=== PATIENT | male | born 1950 | race Caucasian/White ===

== ENCOUNTER 2017-10-17 12:36 | Emergency (ER) | payer MEDICARE, OTHER ==
[2017-10-17 13:27] LABS: #Basophils 0.1 thou/uL (0.0-0.2); #Eosinphils 0.4 thou/uL (0.0-0.7); #Lymphocytes 1.6 thou/uL (1.20-3.40); #Monocytes 0.6 thou/uL (0.11-0.59); %Basophils 0.6 % (0.0-1.0); %Eosinophils 4.2 % (0.0-10.0); %Lymphocytes 16.6 % (21.0-51.0); %Monocytes 6.6 % (0.0-10.0); %Neutrophils 72.1 % (42.0-75.0); Hemoglobin 10.3 g/dL (14.0-18.0); Mean Corpuscular HGB CONC 34.5 g/dL (32.0-36.0); Mean Corpuscular Hemoglobin 31.8 pg (27.0-31.0); Mean Platelet Volume 6.7 fL (7.4-10.4); Platelet Count 289 thou/uL (130-400); RBC Distribution Width 12.2 % (11.5-14.5); Red Blood Cell (RBC) Count 3.23 mill/uL (4.70-6.10); White Blood Cell (WBC) Count 9.8 thou/uL (4.8-10.8)
[2017-10-17 13:39] LABS: Bilirubin Negative (Negative); Blood, Urine Moderate (Negative); Clarity CLOUDY (Clear); Glucose, Urine (Dipstick) Negative (Negative); Leukocyte Large (Negative); Nitrite Negative (Negative); Protein, Urine (Dipstick) Trace mg/dL (Neg-Trace); Specific Gravity, Urine 1.017 (1.002-1.036); Urobilinogen 0.2 mg/dL (0.2-1.0); pH, Urine 5.5 (5.0-9.0)
[2017-10-17 13:47] LABS: Bacteria/HPF None Seen HPF (None Seen); Hyaline Casts/LPF 0-3 HYALINE CAST LPF (0-3 Hyaline); Pathc Cast-AUWi Flag 0.43 (0-2.49); RBC/HPF 0-3 HPF (0-3); Yeast-AUWi Flag 3.4 (0-25.0)
[2017-10-17 13:54] LABS: ALT (SGPT) 30 U/L (8-55); AST (SGOT) 13 U/L (5-34); Albumin 3.7 g/dL (3.4-4.8); Alkaline Phosphatase 54 U/L (40-150); Anion Gap 18 mmol/L (10-20); BUN (Urea Nitrogen) 37 mg/dL (8.4-25.7); Bilirubin, Total 0.2 mg/dL (0.2-1.2); Calc. Creatinine Clearance 0 mL/min (70-130); Calcium 9.5 mg/dL (7.8-10.44); Carbon Dioxide 17 mmol/L (23-31); Chloride 112 mmol/L (98-107); Estimated GFR-MDRD 34; Globulin 3.6 g/dL (2.4-3.5); Glucose 119 mg/dL (80-115); Potassium 4.4 mmol/L (3.5-5.1); Protein, Total 7.3 g/dL (5.8-8.1); Sodium 143 mmol/L (136-145)
[2017-10-17 14:11] LABS: Renal Epithelial None Seen HPF (0-3); Transitional Epithelial NONE SEEN HPF (0-3)
== END 2017-10-17 16:54 | disposition home or self-care (01) ==
LOC: ERS 12:36
DX: R33.9 Retention of urine, unspecified (principal); K21.9 Gastro-esophageal reflux disease without esophagitis; R73.03 Prediabetes; I10 Essential (primary) hypertension; J45.909 Unspecified asthma, uncomplicated; Z79.899 Other long term (current) drug therapy
CPT/HCPCS: 51702; 80053; 81003; 81015; 85025; 96360; 96361

== ENCOUNTER 2017-10-30 11:36 | Outpatient (CLI) | payer MEDICARE ==
[2017-10-30 12:35] LABS: PTT 28.7 SEC (22.9-36.1); Prothrombin Time 13.4 SEC (12.0-14.7)
[2017-10-30 12:45] LABS: Hemoglobin 9.6 g/dL (14.0-18.0); Mean Corpuscular HGB CONC 33.9 g/dL (32.0-36.0); Mean Corpuscular Hemoglobin 31.8 pg (27.0-31.0); Mean Corpuscular Volume 93.8 fL (78.0-98.0); Mean Platelet Volume 7.3 fL (7.4-10.4); Platelet Count 190 thou/uL (130-400); RBC Distribution Width 13.5 % (11.5-14.5); Red Blood Cell (RBC) Count 3.02 mill/uL (4.70-6.10); White Blood Cell (WBC) Count 6.9 thou/uL (4.8-10.8)
[2017-10-30 12:49] LABS: Anion Gap 13 mmol/L (10-20); BUN (Urea Nitrogen) 23 mg/dL (8.4-25.7); Calc. Creatinine Clearance 0 mL/min (70-130); Calcium 8.5 mg/dL (7.8-10.44); Carbon Dioxide 23 mmol/L (23-31); Chloride 109 mmol/L (98-107); Estimated GFR-MDRD 45; Glucose 134 mg/dL (80-115); Potassium 4.1 mmol/L (3.5-5.1); Sodium 141 mmol/L (136-145)
== END 2017-10-30 11:37 | disposition home or self-care (01) ==
LOC: LABBT 11:36
PROVIDERS: ATTEND Urology
DX: Z01.818 Encounter for other preprocedural examination (principal); N40.1 Benign prostatic hyperplasia with lower urinary tract symptoms
CPT/HCPCS: 80048; 81001; 85027; 85610; 85730; 86850; 86900; 86901

== ENCOUNTER 2017-11-01 05:48 | Observation (INO) | payer MEDICARE ==
[2017-11-01] MEDS ORDERED: Sodium Chloride 0.9% 100 ML ONE (06:05)
[2017-11-01] MEDS ORDERED: cefTRIAXone\\ROCEPHIN 1 GM VIAL ONE (06:05)
[2017-11-01] MEDS ORDERED: Fentanyl 100 MCG/2 ML VIAL ONE ×3 (06:55→10:41)
[2017-11-01] MEDS ORDERED: Midazolam HCl 2 mg/2 ml Vial ONE (06:55)
[2017-11-01] MEDS ORDERED: B & O ONE (09:05)
[2017-11-01] MEDS ORDERED: Ondansetron HCl/PF 4 MG/2 ML Vial IVP PRN (10:21)
[2017-11-01] MEDS ORDERED: hydrALAZINE 20 MG/ML VIAL SLOW IVP PRN (10:21)
[2017-11-01] MEDS ORDERED: Oxybutynin 5 MG TAB PO PRN (10:21)
[2017-11-01] MEDS ORDERED: Hyoscyamine Sulfate SL 0.125 mg Tablet SL PRN (10:21)
[2017-11-01] MEDS ORDERED: diphenhydrAMINE 25 MG CAP PO PRN (10:21)
[2017-11-01] MEDS ORDERED: Acetaminophen 500 MG TAB PO PRN (10:21)
[2017-11-01] MEDS ORDERED: Mag-Al 1200 mg/1200 mg/30 ML UDCUP PO PRN (10:21)
[2017-11-01] MEDS ORDERED: Bisacodyl 10 MG SUPP PR PRN (10:21)
[2017-11-01] MEDS ORDERED: traMADol HCl 50 MG TAB PO PRN (10:24)
--- NOTE | 2017-11-01 11:36 | OP ---
DATE OF PROCEDURE: 11/01/2017 SERVICE: Urology. SURGEON: Titus Dunn M.D. PREOPERATIVE DIAGNOSIS: Benign prostatic hypertrophy with urinary retention. POSTOPERATIVE DIAGNOSIS: Benign prostatic hypertrophy with urinary retention. PROCEDURE PERFORMED: Transurethral resection of the prostate. INDICATIONS FOR PROCEDURE: Mr. Genao is a 67-year-old white male who presented to [facility] with a near co mplete urinary retention with bilateral hydronephrosis and acute kidney injury which had previously b een managed by an outside urologist with Khanna catheterization. He was planned for a TURP at that ti mt, but unfortunately due to a series of infections, he was never able to have his surgery. He trans ferred his care to [facility] and currently is free of infection. Due to his severe BPH, he elected to move forward with TURP, which we have discussed extensively with all risks and benefits of which he agreed to proceed forward. DESCRIPTION OF PROCEDURE: After identification of armband and verification of consent, patient was b rought back to the operating room under endotracheal intubation. He was then placed in dorsal lithot yessica position and prepped and draped in sterile fashion. After appropriate timeout, a lubricated 26 F rench resectoscope sheath was placed through the urethra into the bladder. A full cystoscopy was per formed which demonstrated a severe median lobe occupying a good portion of the bladder along with sev ere trilobar hypertrophy. The bladder was trabeculated but did not demonstrate any evidence of tumor or lesions. The visual obturator was switched out for the bipolar prostate resectoscope loop and un conrad bipolar cutting current, the median lobe was resected completely taking care not to undermine the bladder neck or the bladder itself. Both ureters were identified during this process and marked jus t medial and distal to the UO for later identification. Once the median lobe was fully resected, the prostate was resected circumferentially to near the level of the verumontanum. Due to the extremely large size of the prostate, the entire prostate could not be resected and there is still probably an ywhere from 25% to 50% of the prostate tissue still present within the patient. However, given the l ength of time in a very large prostate that the patient has a figure this may be better as a staged p rocedure. Therefore, we elected to stop the procedure after the prostate was completely wide open; h owever, as I stated before, there was still a fair amount of prostate tissue left, which has not yet been resected, although the patient does not necessarily need to have it resected at this time. He m ay be amenable to resection at a later date either in the near future or postponed until he has recur rent symptoms. As such, an extensive amount of time was spent drying up the prostate bed until all a reas of bleeding had been cauterized. The [employer] evacuator was used to evacuate all the prostate chip s, which were sent for routine pathologic evaluation. Upon final cystoscopy, there did not appear to be any prostate chips left within the bladder. Any small residual prostate chips removed manually w ith the resectoscope loop. Both ureters were in orthotopic location unharmed. The prostate was wide open and there was no bleeding. The resectoscope was then removed and a 22-Bahamian three-way Khanna c atheter was placed into the patient's bladder with ease with 30 mL of sterile water placed into the b alloon. CBI was initiated. The patient then had a StatLock affixed and B&O suppository placed in hi s rectum. He was then awakened and taken to PACU for recovery in stable condition. COMPLICATIONS: None. ESTIMATED BLOOD LOSS: Minimal around 50 mL. RETAINED TUBES AND DRAINS: A 22-Bahamian Khanna catheter on CBI. SPECIMENS: Prostate chips. DISPOSITION: The patient will be kept in the hospital overnight to monitor for his hematuria. We wi ll plan a voiding trial in the morning and then he probably can be discharged home.
[2017-11-01 12:05] VITALS: BMI 33.4
[2017-11-01] MEDS ORDERED: Glycopyrrolate 0.2 MG/ML 5 ML SYRINGE ONE (15:47)
[2017-11-01] MEDS ORDERED: PROPOFOL 200 MG/20 ML VIAL ONE (15:47)
[2017-11-01] MEDS ORDERED: Lidocaine 1% PF 5 ML VIAL ONE (15:47)
[2017-11-01] MEDS ORDERED: Ondansetron HCl/PF 4 MG/2 ML Vial ONE (15:47)
[2017-11-01] MEDS: Calcium Carbonate 500 MG ChewTAB PO PRN ×2 (18:55→23:56)
[2017-11-01] MEDS: Docusate 100 MG CAP PO SCH (22:12)
[2017-11-02] MEDS ORDERED: Metoclopramide HCl 10 MG/2 ML VIAL IVP PRN (02:23)
[2017-11-02] MEDS ORDERED: Pantoprazole 40 MG VIAL IVP SCH (02:30)
[2017-11-02 06:22] LABS: #Eosinphils 0.3 thou/uL (0.0-0.7); #Monocytes 0.5 thou/uL (0.11-0.59); #Neutrophils 6.5 thou/uL (1.40-6.50); %Basophils 0.4 % (0.0-1.0); %Eosinophils 3.3 % (0.0-10.0); %Monocytes 5.8 % (0.0-10.0); %Neutrophils 78.4 % (42.0-75.0); Hemoglobin 9.5 g/dL (14.0-18.0); Mean Corpuscular HGB CONC 33.5 g/dL (32.0-36.0); Mean Corpuscular Hemoglobin 31.4 pg (27.0-31.0); Mean Corpuscular Volume 93.6 fL (78.0-98.0); Mean Platelet Volume 7.1 fL (7.4-10.4); Platelet Count 211 thou/uL (130-400); RBC Distribution Width 13.4 % (11.5-14.5); Red Blood Cell (RBC) Count 3.02 mill/uL (4.70-6.10); White Blood Cell (WBC) Count 8.3 thou/uL (4.8-10.8)
[2017-11-02 06:26] LABS: Anion Gap 12 mmol/L (10-20); BUN (Urea Nitrogen) 21 mg/dL (8.4-25.7); Calc. Creatinine Clearance 68 mL/min (70-130); Calcium 8.5 mg/dL (7.8-10.44); Carbon Dioxide 28 mmol/L (23-31); Chloride 109 mmol/L (98-107); Estimated GFR-MDRD 44; Glucose 147 mg/dL (80-115); Potassium 3.8 mmol/L (3.5-5.1); Sodium 145 mmol/L (136-145)
[2017-11-02] MEDS: Docusate 100 MG CAP PO SCH (08:54)
[2017-11-02 12:45] VITALS: BP 150/89; TEMP 98.4
--- NOTE | 2017-11-02 18:03 | PRG ---
DATE OF SERVICE: 11/02/2017 SUBJECTIVE: The patient states he is doing alright. He is having a little bit of catheter irritatio n, but denies any significant pain or bladder spasms. His urine is very clear this morning and his C BI was turned off. He is not having any chest pain or shortness of breath. The patient did have vom iting overnight x2 with brown rust colored urine. The patient has a known history of reflux and stat es that he did not get his Prilosec in time. He was able to eat breakfast this morning without any p roblems and has not had any further issues with nausea, vomiting since. OBJECTIVE: VITAL SIGNS: Temperature 98.4, pulse 71, respirations 16, blood pressure 150/89, saturation 96% on r oom air. GENERAL: No apparent distress, communicative, alert. CARDIOVASCULAR: Regular rate and rhythm. ABDOMEN: Soft, nontender, and nondistended. GENITOURINARY: Khanna catheter in place, draining just light pink-tinged urine. CBI is off. Cathete r secured. EXTREMITIES: No clubbing, cyanosis or edema. LABORATORY DATA: The full set of labs in the [facility], which I reviewed. Of note, hemoglobin is 9.5. His creatinine is currently stable at 1.56, white count of 8.3 and hemoglobin of 9.5. ASSESSMENT AND PLAN: A 67-year-old white male with benign prostatic hypertrophy and urinary retentio n and bilateral hydronephrosis managed with a catheter, now status post transurethral resection of th e prostate postoperative day #1. We will perform a voiding trial and see how he does. He may or may not be able to void and he should be able to be discharged home regardless, but we will plan to send him home with a catheter if he is unable to void. I have gone over his discharge instructions as we ll as postoperative care and we will plan to see him back next week if he is unable to void and has t o go home with a catheter or 2-3 weeks if he is able to void.
--- NOTE | 2017-11-03 02:01 | DIS ---
DATE OF ADMISSION: 11/01/2017 DATE OF DISCHARGE: 11/02/2017 ADMITTING PHYSICIAN: Titus Dunn M.D. DISCHARGING PHYSICIAN: Titus Dunn M.D. ADMITTING DIAGNOSIS: Benign prostatic hyperplasia with urinary retention. DISCHARGE DIAGNOSIS: Benign prostatic hyperplasia with urinary retention. PROCEDURE PERFORMED ON PATIENT: Transurethral resection of the prostate. BRIEF HISTORY: Mr. Genao is a 67-year-old white male, who initially had presented with urinary rete ntion and bilateral hydronephrosis with acute kidney injury. He was managed initially by an outside urologist, who had placed a Khanna catheter and was planning a TURP and, unfortunately, the patient be came septic and had to have this surgery delayed. He is now much better and has been treated adequat daysi and is coming in now for a TURP with me. All risks and benefits have previously been discussed. HOSPITAL COURSE: After surgery (please see operative note for details), the patient was placed in ob servation in the hospital on continuous bladder irrigation, which he kept overnight. The CBI was sto pped in the morning and the patient's urine was very clear. He did have 2 episodes of emesis overnig ht with rust-colored urine, but this stopped after the morning and he was able to eat breakfast and d id not have any further problems. He states this happens whenever he does not take his reflux medica tions on time, which he did not get adequately, because of the surgery yesterday. The patient's cath eter was removed, but unfortunately the patient was not able to void. After approximately 5 hours, a bladder scan was done, which demonstrated approximately 500 mL of urine in the bladder. We elected to replace the Khanna catheter at this point and sent him home with a catheter. An 18-Estonian Khanna ca theter with a 30 mL balloon was placed with ease into the patient's bladder and the balloon is filled with sterile water. This was hooked up to a gravity bag and is secured with a StatLock. We went ov er his discharge instructions. He was discharged home with plans to return in a few days for a void trial. DISPOSITION: Discharge to home with Khanna catheter. DISCHARGE CONDITION: Good. DISCHARGE MEDICATIONS: To resume all of his home medications except the terazosin, which will be dis continued permanently. In addition, he has been getting oxybutynin 5 mg p.o. twice a day for bladder spasms and Pyridium 100 mg p.o. t.i.d. p.r.n. dysuria. DISCHARGE INSTRUCTIONS: Include no heavy lifting, strenuous activities, avoid driving with a cathete r or getting constipated. He is not to submerge under water, but may shower. He should follow up wi th me on Sunday for a void trial.
== END 2017-11-02 17:00 | disposition home or self-care (01) ==
LOC: SDC 05:48 → SJJU 11:40
PROVIDERS: ADMIT Urology; ATTEND Urology
PROC: 0VB08ZZ Excision of Prostate, Via Natural or Artificial Opening Endoscopic (ICD-10-PCS; principal; 2017-11-01)
DX: N40.1 Benign prostatic hyperplasia with lower urinary tract symptoms (principal); N13.8 Other obstructive and reflux uropathy; R33.8 Other retention of urine; N41.0 Acute prostatitis; N13.30 Unspecified hydronephrosis; J45.909 Unspecified asthma, uncomplicated; G47.30 Sleep apnea, unspecified; I12.9 Hypertensive chronic kidney disease with stage 1 through stage 4 chronic kidney disease, or unspecified chronic kidney disease; N18.9 Chronic kidney disease, unspecified; F17.220 Nicotine dependence, chewing tobacco, uncomplicated; Z96.0 Presence of urogenital implants; Z79.899 Other long term (current) drug therapy
CPT/HCPCS: 52601; 80048; 85025; 88305; 94660; 96374 ×2; 96375; G0378; 36415; C9113; J0696; J1956; J2001; J2250; J2405; J2704; J2765; J3010; J7050

== ENCOUNTER 2021-01-10 22:55 | Inpatient (IN) | payer MEDICARE, OTHER ==
[2021-01-11] MEDS ORDERED: Acetaminophen 325 MG TAB PO PRN (02:53)
[2021-01-11] MEDS ORDERED: Ondansetron PF 4 MG/2 ML Vial IVP PRN (02:53)
[2021-01-11] MEDS ORDERED: Acetaminophen 650 MG Suppository PR PRN (02:53)
[2021-01-11] MEDS ORDERED: Ondansetron ODT 4 MG TAB PO PRN (02:53)
[2021-01-11 03:25] LABS: #Basophils 0.1 thou/uL (0.0-0.2); #Eosinphils 0.3 thou/uL (0.0-0.7); #Lymphocytes 1.4 thou/uL (1.20-3.40); #Monocytes 0.7 thou/uL (0.11-0.59); #Neutrophils 4.7 thou/uL (1.40-6.50); %Eosinophils 3.7 % (0.0-10.0); %Lymphocytes 19.8 % (21.0-51.0); %Monocytes 9.5 % (0.0-10.0); %Neutrophils 66.1 % (42.0-75.0); Hemoglobin 11.3 g/dL (14.0-18.0); Mean Corpuscular HGB CONC 34.6 g/dL (32.0-36.0); Mean Corpuscular Hemoglobin 33.9 pg (27.0-31.0); Mean Corpuscular Volume 98.2 fL (78.0-98.0); Mean Platelet Volume 8.5 fL (7.4-10.4); Platelet Count 158 thou/uL (130-400); RBC Distribution Width 11.9 % (11.5-14.5); Red Blood Cell (RBC) Count 3.33 mill/uL (4.70-6.10); White Blood Cell (WBC) Count 7.1 thou/uL (4.8-10.8)
[2021-01-11 03:44] LABS: Anion Gap 14 mmol/L (10-20); BUN (Urea Nitrogen) 50 mg/dL (8.4-25.7); Calc. Creatinine Clearance 52 mL/min (70-130); Calcium 8.5 mg/dL (7.8-10.44); Carbon Dioxide 19 mmol/L (23-31); Chloride 102 mmol/L (98-107); Glucose 197 mg/dL (83-110); Potassium 3.5 mmol/L (3.5-5.1); Sodium 131 mmol/L (136-145)
[2021-01-11] MEDS ORDERED: Dextrose 5% in Water 1,000 ML IV PRN (05:24)
[2021-01-11] MEDS ORDERED: HumaLOG 300 UNITS/3 ML VIAL SC PRN (05:24)
[2021-01-11] MEDS ORDERED: Dextrose 50% Abboject 50 ML SYRINGE SLOW IVP PRN (05:24)
[2021-01-11] MEDS: Sodium Chloride 0.9% 1,000 ML IV SCH ×2 (06:01→17:51)
[2021-01-11] MEDS ORDERED: HumaLOG 300 UNITS/3 ML VIAL ONE (07:49)
[2021-01-11] MEDS: HumaLOG 300 UNITS/3 ML VIAL SC PRN ×2 (07:50→13:17)
[2021-01-11 08:40] LABS: Hemoglobin 10.6 g/dL (14.0-18.0)
[2021-01-11] MEDS ORDERED: Pantoprazole 40 MG VIAL ONE (08:50)
[2021-01-11] MEDS: Pantoprazole 40 MG VIAL IVP SCH ×2 (10:01→21:05)
[2021-01-11] MEDS ORDERED: GoLYTELY 4,000 ml Bottle PO SCH (17:00)
[2021-01-12] MEDS: Sodium Chloride 0.9% 1,000 ML IV SCH (02:45)
[2021-01-12 04:59] LABS: #Eosinphils 0.3 thou/uL (0.0-0.7); #Lymphocytes 1.4 thou/uL (1.20-3.40); #Monocytes 0.6 thou/uL (0.11-0.59); #Neutrophils 3.9 thou/uL (1.40-6.50); %Basophils 0.6 % (0.0-1.0); %Eosinophils 4.3 % (0.0-10.0); %Monocytes 9.3 % (0.0-10.0); %Neutrophils 62.8 % (42.0-75.0); Hemoglobin 10.8 g/dL (14.0-18.0); Mean Corpuscular Hemoglobin 34.4 pg (27.0-31.0); Mean Corpuscular Volume 98.2 fL (78.0-98.0); Mean Platelet Volume 8.6 fL (7.4-10.4); Platelet Count 173 thou/uL (130-400); RBC Distribution Width 11.9 % (11.5-14.5); Red Blood Cell (RBC) Count 3.15 mill/uL (4.70-6.10); White Blood Cell (WBC) Count 6.2 thou/uL (4.8-10.8)
[2021-01-12 05:27] LABS: Anion Gap 13 mmol/L (10-20); BUN (Urea Nitrogen) 30 mg/dL (8.4-25.7); Calc. Creatinine Clearance 69 mL/min (70-130); Calcium 8.5 mg/dL (7.8-10.44); Carbon Dioxide 21 mmol/L (23-31); Chloride 107 mmol/L (98-107); Glucose 188 mg/dL (83-110); Potassium 3.7 mmol/L (3.5-5.1); Sodium 137 mmol/L (136-145)
[2021-01-12] MEDS ORDERED: PROPOFOL 200 MG/20 ML VIAL ONE (11:06)
[2021-01-12] MEDS ORDERED: Lidocaine 1% PF 5 ML VIAL ONE (11:06)
[2021-01-12] MEDS: Pantoprazole 40 MG VIAL IVP SCH ×2 (15:09→20:25)
[2021-01-12] MEDS ORDERED: cefOXitin Sodium/Dextrose,Iso 2 GM in Premix Bag 1 BAG IVPB SCH (18:00)
[2021-01-12] MEDS: HumaLOG 300 UNITS/3 ML VIAL SC PRN (18:05)
[2021-01-13] MEDS ORDERED: cefOXitin Sodium/Dextrose 2 GM/50 ML BAG ONE (06:31)
[2021-01-13] MEDS ORDERED: Bupivacaine 0.25% HCL 30 ML VIAL ONE (06:36)
[2021-01-13] MEDS ORDERED: EPINEPHrine 1 MG/ML AMP ONE (06:36)
[2021-01-13] MEDS ORDERED: Fentanyl 100 MCG/2 ML VIAL ONE ×6 (06:59→15:54)
[2021-01-13] MEDS ORDERED: Midazolam HCl 2 mg/2 ml Vial ONE (06:59)
[2021-01-13] MEDS ORDERED: Lidocaine 1% (PF) 30 ML VIAL ONE (06:59)
[2021-01-13] MEDS ORDERED: Bupivacaine HCl 0.5%/Epinephrine 1:200,000/PF 30 ml Vial ONE (07:04)
[2021-01-13] MEDS ORDERED: Ondansetron PF 4 MG/2 ML Vial ONE (07:04)
[2021-01-13] MEDS ORDERED: Glycopyrrolate 0.2 MG/ML 5 ML SYRINGE ONE (07:04)
[2021-01-13] MEDS ORDERED: Lidocaine 1% PF 5 ML VIAL ONE (07:04)
[2021-01-13] MEDS ORDERED: PROPOFOL 200 MG/20 ML VIAL ONE (07:04)
[2021-01-13] MEDS ORDERED: Phenylephrine 10 MG/ML VIAL ONE (07:29)
[2021-01-13] MEDS ORDERED: Dexmedetomidine 200 MCG/2 ML VIAL ONE (07:29)
[2021-01-13] MEDS ORDERED: Ondansetron PF 4 MG/2 ML Vial IVP PRN (09:52)
[2021-01-13] MEDS ORDERED: Morphine 2 MG/ML VIAL SLOW IVP PRN (09:52)
[2021-01-13] MEDS ORDERED: Promethazine HCl 25 MG/ML VIAL IM PRN ×2 (09:52→10:01)
[2021-01-13] MEDS ORDERED: Ondansetron HCl/PF 4 MG/2 ML Vial IVP PRN (10:01)
[2021-01-13] MEDS ORDERED: HYDROmorphone 2 MG/ML VIAL SLOW IVP PRN (10:01)
[2021-01-13] MEDS ORDERED: Promethazine HCl 25 MG/ML VIAL IVPB PRN (10:01)
[2021-01-13] MEDS ORDERED: PACU-Morphine 4MG/ML VIAL SLOW IVP PRN (10:01)
[2021-01-13] MEDS ORDERED: Insulin Regular 300 UNITS/3 ML VIAL ONE (10:10)
[2021-01-13] MEDS ORDERED: HYDROmorphone 2 MG/ML VIAL ONE (10:55)
[2021-01-13] MEDS ORDERED: cefOXitin 2 GM in Sodium Chloride 0.9% 100 ML IVPB SCH (14:00)
[2021-01-13] MEDS: Pantoprazole 40 MG VIAL IVP SCH ×2 (17:18→21:19)
[2021-01-13] MEDS: cefOXitin Sodium/Dextrose,Iso 2 GM in Premix Bag 1 BAG IVPB SCH ×3 (17:18→21:18)
[2021-01-13] MEDS: Ketorolac Tromethamine 30 MG/ML VIAL IVP SCH ×2 (17:18→18:05)
[2021-01-13] MEDS: Sodium Chloride 0.9% 1,000 ML IV SCH ×4 (17:18→18:53)
[2021-01-13] MEDS ORDERED: cefOXitin Sodium/Dextrose,Iso 2 GM in Premix Bag 1 BAG IVPB SCH (17:30)
[2021-01-13] MEDS: Famotidine/PF 20 mg/2ml Vial SLOW IVP SCH (21:19)
[2021-01-13] MEDS: Famotidine 20 MG TAB PO SCH (21:19)
[2021-01-14] MEDS: Ketorolac Tromethamine 30 MG/ML VIAL IVP SCH ×5 (00:22→23:42)
[2021-01-14] MEDS: Sodium Chloride 0.9% 1,000 ML IV SCH ×3 (03:01→21:22)
[2021-01-14] MEDS: cefOXitin Sodium/Dextrose,Iso 2 GM in Premix Bag 1 BAG IVPB SCH (04:47)
[2021-01-14 06:57] LABS: #Eosinphils 0.1 thou/uL (0.0-0.7); #Lymphocytes 1.1 thou/uL (1.20-3.40); #Monocytes 0.7 thou/uL (0.11-0.59); #Neutrophils 5.7 thou/uL (1.40-6.50); %Basophils 0.2 % (0.0-1.0); %Eosinophils 0.8 % (0.0-10.0); %Monocytes 8.9 % (0.0-10.0); %Neutrophils 76.1 % (42.0-75.0); Hemoglobin 9.9 g/dL (14.0-18.0); Mean Corpuscular HGB CONC 32.3 g/dL (32.0-36.0); Mean Corpuscular Hemoglobin 32.9 pg (27.0-31.0); Mean Platelet Volume 7.7 fL (7.4-10.4); Platelet Count 145 thou/uL (130-400); RBC Distribution Width 11.9 % (11.5-14.5); Red Blood Cell (RBC) Count 3.02 mill/uL (4.70-6.10); White Blood Cell (WBC) Count 7.5 thou/uL (4.8-10.8)
[2021-01-14 07:23] LABS: Anion Gap 13 mmol/L (10-20); BUN (Urea Nitrogen) 15 mg/dL (8.4-25.7); Calc. Creatinine Clearance 66 mL/min (70-130); Calcium 7.7 mg/dL (7.8-10.44); Carbon Dioxide 17 mmol/L (23-31); Chloride 111 mmol/L (98-107); Glucose 160 mg/dL (83-110); Potassium 3.9 mmol/L (3.5-5.1); Sodium 137 mmol/L (136-145)
[2021-01-14] MEDS: Enoxaparin Sodium 40 MG/0.4 ML SYRINGE SC SCH (10:25)
[2021-01-14] MEDS: Pantoprazole 40 MG VIAL IVP SCH ×2 (10:26→21:23)
[2021-01-14] MEDS: Famotidine 20 MG TAB PO SCH ×2 (10:26→21:22)
[2021-01-14] MEDS: Famotidine/PF 20 mg/2ml Vial SLOW IVP SCH ×2 (12:41→21:21)
[2021-01-14] MEDS: hydrALAZINE 20 MG/ML VIAL SLOW IVP PRN (21:35)
[2021-01-14] MEDS: Morphine 4 MG/ML VIAL SLOW IVP PRN (23:46)
[2021-01-15] MEDS: Morphine 4 MG/ML VIAL SLOW IVP PRN ×5 (01:59→23:31)
[2021-01-15] MEDS: Sodium Chloride 0.9% 1,000 ML IV SCH ×3 (05:01→21:50)
[2021-01-15] MEDS: hydrALAZINE 20 MG/ML VIAL SLOW IVP PRN (05:01)
[2021-01-15] MEDS: Ketorolac Tromethamine 30 MG/ML VIAL IVP SCH ×4 (05:03→23:29)
[2021-01-15 05:21] LABS: #Eosinphils 0.1 thou/uL (0.0-0.7); #Lymphocytes 0.6 thou/uL (1.20-3.40); #Monocytes 0.6 thou/uL (0.11-0.59); #Neutrophils 8.5 thou/uL (1.40-6.50); %Basophils 0.2 % (0.0-1.0); %Eosinophils 0.6 % (0.0-10.0); %Monocytes 6.4 % (0.0-10.0); %Neutrophils 86.8 % (42.0-75.0); Hemoglobin 10.7 g/dL (14.0-18.0); Mean Corpuscular HGB CONC 32.9 g/dL (32.0-36.0); Mean Corpuscular Hemoglobin 33.1 pg (27.0-31.0); Platelet Count 161 thou/uL (130-400); RBC Distribution Width 11.9 % (11.5-14.5); Red Blood Cell (RBC) Count 3.22 mill/uL (4.70-6.10); White Blood Cell (WBC) Count 9.8 thou/uL (4.8-10.8)
[2021-01-15 05:37] LABS: Anion Gap 15 mmol/L (10-20); BUN (Urea Nitrogen) 17 mg/dL (8.4-25.7); Calc. Creatinine Clearance 81 mL/min (70-130); Calcium 7.7 mg/dL (7.8-10.44); Carbon Dioxide 16 mmol/L (23-31); Chloride 114 mmol/L (98-107); Glucose 138 mg/dL (83-110); Potassium 4.1 mmol/L (3.5-5.1); Sodium 141 mmol/L (136-145)
[2021-01-15] MEDS: Famotidine/PF 20 mg/2ml Vial SLOW IVP SCH ×2 (07:52→21:45)
[2021-01-15] MEDS: Pantoprazole 40 MG VIAL IVP SCH ×2 (08:45→21:45)
[2021-01-15] MEDS: Tamsulosin HCl 0.4 MG CAP PO SCH (08:46)
[2021-01-15] MEDS: Famotidine 20 MG TAB PO SCH ×2 (08:46→22:18)
[2021-01-15] MEDS: Enoxaparin Sodium 40 MG/0.4 ML SYRINGE SC SCH (09:00)
[2021-01-16] MEDS: Morphine 4 MG/ML VIAL SLOW IVP PRN (01:23)
[2021-01-16] MEDS ORDERED: cefOXitin Sodium/Dextrose,Iso 2 GM in Premix Bag 1 BAG IVPB SCH (03:00)
[2021-01-16] MEDS ORDERED: Albumin 5% 250 ML ONE (03:17)
[2021-01-16] MEDS ORDERED: Fentanyl 250 MCG/5 ML VIAL ONE (03:17)
[2021-01-16] MEDS ORDERED: Phenylephrine 10 MG/ML VIAL ONE ×3 (03:17→06:34)
[2021-01-16] MEDS ORDERED: Midazolam HCl 2 mg/2 ml Vial ONE (03:19)
[2021-01-16] MEDS ORDERED: Sodium Chloride 0.9% 10 ML ONE (04:06)
[2021-01-16] MEDS ORDERED: PROPOFOL 200 MG/20 ML VIAL ONE (04:14)
[2021-01-16] MEDS ORDERED: Rocuronium Bromide 10 MG/ML (10ML VIAL) ONE (04:14)
[2021-01-16] MEDS ORDERED: Succinylcholine 200 MG/10 ml SYRINGE FS ONE (04:14)
[2021-01-16] MEDS ORDERED: Calcium Chloride 1 GM/10 ML Abboject SYRINGE ONE (04:14)
[2021-01-16] MEDS ORDERED: PHENYLEPHRINE-NS 100 MCG/ML 10 ML SYRINGE ONE ×2 (04:14→05:43)
[2021-01-16] MEDS ORDERED: Lidocaine 1% PF 5 ML VIAL ONE (04:14)
[2021-01-16] MEDS ORDERED: Sodium Bicarb 50 MEQ/50 ML Abboject 8.4% SYRINGE ONE ×2 (04:42→06:41)
[2021-01-16] MEDS: Ketorolac Tromethamine 30 MG/ML VIAL IVP SCH ×2 (06:04→11:45)
[2021-01-16] MEDS: Sodium Chloride 0.9% 1,000 ML IV SCH ×4 (06:04→21:47)
[2021-01-16] MEDS ORDERED: cefOXitin Sodium/Dextrose 2 GM/50 ML BAG ONE (06:14)
[2021-01-16] MEDS ORDERED: DOPamine 400 MG/D5W 250 ML 250 ML ONE (06:36)
[2021-01-16] MEDS ORDERED: Bupivacaine 0.25% HCL 30 ML VIAL ONE (06:42)
[2021-01-16] MEDS ORDERED: EPINEPHrine 1 MG/ML AMP ONE (06:42)
[2021-01-16] MEDS ORDERED: Lorazepam 2 MG/ML VIAL SLOW IVP PRN (08:00)
[2021-01-16] MEDS ORDERED: Propofol 1,000 MG/100 ML VIAL IV PRN (08:00)
[2021-01-16] MEDS ORDERED: Propofol BOLUS 1,000 MG/100 ML VIAL IV PRN (08:00)
[2021-01-16] MEDS ORDERED: Fentanyl BOLUS 250 ML IVPB PRN (08:00)
[2021-01-16 08:34] LABS: Anion Gap 13 mmol/L (10-20); BUN (Urea Nitrogen) 23 mg/dL (8.4-25.7); Calc. Creatinine Clearance 64 mL/min (70-130); Calcium 7.2 mg/dL (7.8-10.44); Carbon Dioxide 18 mmol/L (23-31); Chloride 115 mmol/L (98-107); Glucose 186 mg/dL (83-110); Potassium 3.7 mmol/L (3.5-5.1); Sodium 142 mmol/L (136-145)
[2021-01-16 08:38] LABS: ALT (SGPT) 29 U/L (8-55); AST (SGOT) 41 U/L (5-34); Albumin 2.2 g/dL (3.4-4.8); Alkaline Phosphatase 56 U/L (40-110); Anion Gap 16 mmol/L (10-20); BUN (Urea Nitrogen) 24 mg/dL (8.4-25.7); Band 39 % (5-11); Calc. Creatinine Clearance 62 mL/min (70-130); Calcium 7.2 mg/dL (7.8-10.44); Carbon Dioxide 17 mmol/L (23-31); Chloride 115 mmol/L (98-107); Glucose 191 mg/dL (83-110); Lymphocytes 20 % (21-51); MDiff Complete? YES; Magnesium 1.3 mg/dL (1.6-2.6); Mean Corpuscular HGB CONC 33.4 g/dL (32.0-36.0); Mean Corpuscular Hemoglobin 34.7 pg (27.0-31.0); Mean Platelet Volume 7.8 fL (7.4-10.4); Metamyelocyte 2 % (0-0); Monocytes 2 % (0-10); Neutrophil 33 % (42-75); Phosphorus 2.6 mg/dL (2.3-4.7); Platelet Count 251 thou/uL (130-400); Potassium 3.7 mmol/L (3.5-5.1); Protein, Total 4.2 g/dL (5.8-8.1); RBC Distribution Width 12.2 % (11.5-14.5); Reactive Lymphocytes 4 % (0-10); Red Blood Cell (RBC) Count 2.89 mill/uL (4.70-6.10); Sodium 144 mmol/L (136-145); Toxic Granulation SLIGHT; Vacuoles SLIGHT; White Blood Cell (WBC) Count 5.5 thou/uL (4.8-10.8)
[2021-01-16] MEDS: Fentanyl CADD 100 ML IV SCH (09:31)
[2021-01-16 09:50] LABS: Base Excess (BEa) -9.4 mEq/L (-2.0 to +3.0); CO2 Tension 38.8 mmHg (35.0-45.0); Calcium, Ionized (arterial) 1.03 mmol/L (1.12-1.30); Carboxyhemoglobin (COHb) 0.2 gm% (0.0-3.0); Hemoglobin (Hb) 10.8 g/dL (14.0-18.0); O2 Tension (PaO2), arterial 95.7 mmHg (> 70.0); Potassium - ABG Lab 3.63 mmol/L (3.70-5.30); pH, Arterial 7.26 (7.35-7.45)
[2021-01-16 09:51] LABS: Puncture Site Arterial Line
[2021-01-16] MEDS ORDERED: Iopamidol-370 76% 500 ML 1 ML ONE (11:35)
[2021-01-16 11:46] LABS: Band 52 % (5-11); Hemoglobin 10.3 g/dL (14.0-18.0); Lymphocytes 10 % (21-51); MDiff Complete? YES; Mean Corpuscular HGB CONC 32.4 g/dL (32.0-36.0); Mean Corpuscular Hemoglobin 33.8 pg (27.0-31.0); Metamyelocyte 4 % (0-0); Monocytes 3 % (0-10); Neutrophil 29 % (42-75); Platelet Count 224 thou/uL (130-400); RBC Distribution Width 12.4 % (11.5-14.5); Reactive Lymphocytes 2 % (0-10); Red Blood Cell (RBC) Count 3.05 mill/uL (4.70-6.10)
[2021-01-16] MEDS: Tamsulosin HCl 0.4 MG CAP PO SCH (11:47)
[2021-01-16] MEDS: Famotidine 20 MG TAB PO SCH ×3 (11:48→21:45)
[2021-01-16] MEDS: cefOXitin Sodium/Dextrose,Iso 2 GM in Premix Bag 1 BAG IVPB SCH ×2 (11:54→20:47)
[2021-01-16] MEDS: Pantoprazole 40 MG VIAL IVP SCH (12:00)
[2021-01-16] MEDS: Enoxaparin Sodium 40 MG/0.4 ML SYRINGE SC SCH (12:00)
[2021-01-16] MEDS: Famotidine/PF 20 mg/2ml Vial SLOW IVP SCH ×2 (12:01→20:46)
[2021-01-16] MEDS: HumaLOG 300 UNITS/3 ML VIAL SC PRN ×2 (13:29→18:03)
[2021-01-16] MEDS: DOPamine 400 MG/D5W 250 ML 250 ML IVPB SCH ×2 (13:34→21:10)
[2021-01-16] MEDS ORDERED: Magnesium Sulfate 3 GM in Sodium Chloride 0.9% 100 ML IVPB SCH (19:30)
[2021-01-17] MEDS: cefOXitin Sodium/Dextrose,Iso 2 GM in Premix Bag 1 BAG IVPB SCH (02:34)
[2021-01-17 03:10] LABS: Hemoglobin 9.9 g/dL (14.0-18.0); Mean Corpuscular Hemoglobin 33.4 pg (27.0-31.0); Mean Platelet Volume 7.9 fL (7.4-10.4); Platelet Count 233 thou/uL (130-400); RBC Distribution Width 12.6 % (11.5-14.5); Red Blood Cell (RBC) Count 2.98 mill/uL (4.70-6.10); White Blood Cell (WBC) Count 13.1 thou/uL (4.8-10.8)
[2021-01-17 03:36] LABS: Anion Gap 13 mmol/L (10-20); BUN (Urea Nitrogen) 34 mg/dL (8.4-25.7); Calc. Creatinine Clearance 56 mL/min (70-130); Carbon Dioxide 18 mmol/L (23-31); Chloride 116 mmol/L (98-107); Glucose 232 mg/dL (83-110); Magnesium 2.9 mg/dL (1.6-2.6); Potassium 4.1 mmol/L (3.5-5.1); Sodium 143 mmol/L (136-145)
[2021-01-17 03:38] LABS: Band 67 % (5-11); Lymphocytes 10 % (21-51); MDiff Complete? YES; Metamyelocyte 1 % (0-0); Monocytes 3 % (0-10); Neutrophil 19 % (42-75); Toxic Granulation SLIGHT; Vacuoles SLIGHT
[2021-01-17 03:40] LABS: Lactic Acid 1.4 mmol/L (0.5-2.2)
[2021-01-17] MEDS ORDERED: Fentanyl CADD 100 ML ONE (03:50)
[2021-01-17 03:51] LABS: Phosphorus 3.2 mg/dL (2.3-4.7)
[2021-01-17] MEDS: Fentanyl CADD 100 ML IV SCH (03:58)
[2021-01-17] MEDS: Sodium Chloride 0.9% 1,000 ML IV SCH ×3 (04:50→19:42)
[2021-01-17 06:25] VITALS: BMI 37.5
[2021-01-17] MEDS: DOPamine 400 MG/D5W 250 ML 250 ML IVPB SCH (08:13)
[2021-01-17] MEDS ORDERED: Piperacillin/Tazobactam 3.375 GM in Sodium Chloride 0.9% 100 ML IVPB SCH ×2 (09:30→10:00)
[2021-01-17] MEDS ORDERED: Enoxaparin Sodium 40 MG/0.4 ML SYRINGE SC SCH (09:45)
[2021-01-17] MEDS: Pantoprazole 40 MG VIAL IVP SCH (09:54)
[2021-01-17] MEDS: Tamsulosin HCl 0.4 MG CAP PO SCH (09:54)
[2021-01-17] MEDS: Enoxaparin Sodium 40 MG/0.4 ML SYRINGE SC SCH ×2 (10:06→10:58)
[2021-01-17] MEDS: HumaLOG 300 UNITS/3 ML VIAL SC PRN (14:29)
[2021-01-17] MEDS: Piperacillin/Tazobactam 3.375 GM in Sodium Chloride 0.9% 100 ML IVPB SCH (19:46)
[2021-01-18] MEDS: Sodium Chloride 0.9% 1,000 ML IV SCH ×2 (01:06→08:42)
[2021-01-18] MEDS: Morphine 2 MG/ML VIAL SLOW IVP PRN ×3 (01:13→21:10)
[2021-01-18] MEDS ORDERED: Lorazepam 2 MG/ML VIAL SLOW IVP SCH (02:00)
[2021-01-18] MEDS: Piperacillin/Tazobactam 3.375 GM in Sodium Chloride 0.9% 100 ML IVPB SCH ×3 (03:30→17:52)
[2021-01-18 04:07] LABS: Hemoglobin 9.5 g/dL (14.0-18.0); Mean Corpuscular HGB CONC 31.6 g/dL (32.0-36.0); Mean Corpuscular Hemoglobin 32.8 pg (27.0-31.0); Mean Platelet Volume 8.2 fL (7.4-10.4); Platelet Count 194 thou/uL (130-400); RBC Distribution Width 12.8 % (11.5-14.5); Red Blood Cell (RBC) Count 2.89 mill/uL (4.70-6.10); White Blood Cell (WBC) Count 9.6 thou/uL (4.8-10.8)
[2021-01-18 04:29] LABS: ALT (SGPT) 20 U/L (8-55); AST (SGOT) 19 U/L (5-34); Albumin 2.1 g/dL (3.4-4.8); Alkaline Phosphatase 62 U/L (40-110); Anion Gap 16 mmol/L (10-20); BUN (Urea Nitrogen) 38 mg/dL (8.4-25.7); Bilirubin, Total 0.5 mg/dL (0.2-1.2); Calc. Creatinine Clearance 59 mL/min (70-130); Calcium 7.3 mg/dL (7.8-10.44); Carbon Dioxide 17 mmol/L (23-31); Chloride 118 mmol/L (98-107); Globulin 2.1 g/dL (2.4-3.5); Glucose 210 mg/dL (83-110); Magnesium 1.9 mg/dL (1.6-2.6); Potassium 3.9 mmol/L (3.5-5.1); Protein, Total 4.2 g/dL (5.8-8.1); Sodium 147 mmol/L (136-145)
[2021-01-18 04:33] LABS: Band 28 % (5-11); Lymphocytes 17 % (21-51); MDiff Complete? YES; Monocytes 2 % (0-10); Neutrophil 53 % (42-75); Platelet Morphology Comment Appears Adequate; RBC Morphology Normal
[2021-01-18 05:11] LABS: Phosphorus 2.7 mg/dL (2.3-4.7)
[2021-01-18] MEDS: Tamsulosin HCl 0.4 MG CAP PO SCH (08:41)
[2021-01-18] MEDS: Enoxaparin Sodium 40 MG/0.4 ML SYRINGE SC SCH (08:41)
[2021-01-18] MEDS: Pantoprazole 40 MG VIAL IVP SCH (08:42)
[2021-01-18] MEDS ORDERED: Sodium Bicarbonate 50 MEQ in Sodium Chloride 0.45% 1,000 ML IV SCH (08:45)
[2021-01-18] MEDS: HumaLOG 300 UNITS/3 ML VIAL SC PRN (18:47)
[2021-01-19] MEDS ORDERED: Lorazepam 2 MG/ML VIAL SLOW IVP PRN (00:01)
[2021-01-19] MEDS ORDERED: Sodium Chloride 0.9% 1,000 ML IV SCH (01:15)
[2021-01-19] MEDS: Piperacillin/Tazobactam 3.375 GM in Sodium Chloride 0.9% 100 ML IVPB SCH ×3 (01:36→17:48)
[2021-01-19] MEDS: hydrALAZINE 20 MG/ML VIAL SLOW IVP PRN ×2 (05:43→15:16)
[2021-01-19] MEDS: Morphine 2 MG/ML VIAL SLOW IVP PRN ×2 (05:44→15:16)
[2021-01-19 06:12] LABS: Hemoglobin 10.4 g/dL (14.0-18.0); Mean Corpuscular HGB CONC 31.3 g/dL (32.0-36.0); Mean Corpuscular Hemoglobin 32.2 pg (27.0-31.0); Mean Platelet Volume 8.1 fL (7.4-10.4); Platelet Count 217 thou/uL (130-400); RBC Distribution Width 13.2 % (11.5-14.5); Red Blood Cell (RBC) Count 3.24 mill/uL (4.70-6.10); White Blood Cell (WBC) Count 11.1 thou/uL (4.8-10.8)
[2021-01-19] MEDS: HumaLOG 300 UNITS/3 ML VIAL SC PRN ×2 (06:16→17:48)
[2021-01-19 06:22] LABS: Anion Gap 17 mmol/L (10-20); BUN (Urea Nitrogen) 42 mg/dL (8.4-25.7); Calc. Creatinine Clearance 66 mL/min (70-130); Calcium 7.9 mg/dL (7.8-10.44); Carbon Dioxide 18 mmol/L (23-31); Chloride 119 mmol/L (98-107); Glucose 214 mg/dL (83-110); Potassium 3.7 mmol/L (3.5-5.1); Sodium 150 mmol/L (136-145)
[2021-01-19 06:44] LABS: Band 24 % (5-11); Lymphocytes 10 % (21-51); MDiff Complete? YES; Monocytes 5 % (0-10); Myelocyte 1 % (0-0); Neutrophil 59 % (42-75); Reactive Lymphocytes 1 % (0-10)
[2021-01-19] MEDS ORDERED: Sodium Chloride 0.45% 1,000 ML IV SCH ×2 (08:45→13:09)
[2021-01-19] MEDS: Tamsulosin HCl 0.4 MG CAP PO SCH (09:06)
[2021-01-19] MEDS: Enoxaparin Sodium 40 MG/0.4 ML SYRINGE SC SCH (09:06)
[2021-01-19] MEDS: Pantoprazole 40 MG VIAL IVP SCH (09:07)
[2021-01-19] MEDS ORDERED: Furosemide 40 MG/4 ML VIAL SLOW IVP SCH (16:15)
[2021-01-20] MEDS: Piperacillin/Tazobactam 3.375 GM in Sodium Chloride 0.9% 100 ML IVPB SCH ×2 (01:56→08:18)
[2021-01-20 04:46] LABS: Hemoglobin 10.9 g/dL (14.0-18.0); Mean Corpuscular HGB CONC 31.7 g/dL (32.0-36.0); Mean Corpuscular Hemoglobin 31.9 pg (27.0-31.0); Mean Platelet Volume 8.4 fL (7.4-10.4); Platelet Count 279 thou/uL (130-400); RBC Distribution Width 13.6 % (11.5-14.5); Red Blood Cell (RBC) Count 3.41 mill/uL (4.70-6.10)
[2021-01-20 05:01] LABS: Anion Gap 18 mmol/L (10-20); BUN (Urea Nitrogen) 45 mg/dL (8.4-25.7); Calc. Creatinine Clearance 61 mL/min (70-130); Calcium 7.7 mg/dL (7.8-10.44); Carbon Dioxide 17 mmol/L (23-31); Chloride 117 mmol/L (98-107); Glucose 230 mg/dL (83-110); Potassium 3.7 mmol/L (3.5-5.1); Sodium 148 mmol/L (136-145)
[2021-01-20 05:07] LABS: Band 18 % (5-11); Lymphocytes 13 % (21-51); MDiff Complete? YES; Monocytes 16 % (0-10); Neutrophil 53 % (42-75); Platelet Morphology Comment Appears Adequate; RBC Morphology Normal
[2021-01-20] MEDS: Morphine 2 MG/ML VIAL SLOW IVP PRN ×3 (06:05→20:41)
[2021-01-20] MEDS: Furosemide 40 MG/4 ML VIAL SLOW IVP SCH ×2 (06:05→14:03)
[2021-01-20] MEDS: HumaLOG 300 UNITS/3 ML VIAL SC PRN ×2 (06:22→14:04)
[2021-01-20] MEDS: Enoxaparin Sodium 40 MG/0.4 ML SYRINGE SC SCH (08:17)
[2021-01-20] MEDS: Tamsulosin HCl 0.4 MG CAP PO SCH (08:18)
[2021-01-20] MEDS: Pantoprazole 40 MG VIAL IVP SCH (08:18)
[2021-01-20 12:06] LABS: SARS-CoV-2 PCR by NAA Not Detected (NotDetected)
[2021-01-20] MEDS ORDERED: MEROPENEM 1 GM/50 ML 1 GM in Premix Bag 1 BAG IVPB SCH ×2 (16:00→23:59)
[2021-01-20] MEDS ORDERED: Furosemide 40 MG/4 ML VIAL SLOW IVP SCH (23:59)
[2021-01-21] MEDS ORDERED: Atropine Sulfate 1 mg/10 ml Syringe ONE (00:01)
[2021-01-21] MEDS ORDERED: Amiodarone 150 MG/3 ML VIAL ONE (00:01)
[2021-01-21] MEDS ORDERED: Sodium Bicarb 50 MEQ/50 ML Abboject 8.4% SYRINGE ONE (00:01)
[2021-01-21] MEDS ORDERED: EPINEPHrine 1 MG/10 ML Abboject SYRINGE ONE (00:01)
[2021-01-21] MEDS ORDERED: Magnesium 5 GM/10 ML Abboject SYRINGE ONE (00:01)
[2021-01-21] MEDS ORDERED: Norepinephrine 8 MG/0.9% NS 250 ML IVPB SCH (00:45)
[2021-01-21 01:29] LABS: Anion Gap 32 mmol/L (10-20); BUN (Urea Nitrogen) 50 mg/dL (8.4-25.7); Calc. Creatinine Clearance 50 mL/min (70-130); Calcium 8.8 mg/dL (7.8-10.44); Carbon Dioxide 14 mmol/L (23-31); Chloride 109 mmol/L (98-107); Glucose 244 mg/dL (83-110); Potassium 3.7 mmol/L (3.5-5.1); Sodium 151 mmol/L (136-145)
[2021-01-21 02:01] LABS: Band 19 % (5-11); Eosinophils 1 % (0-10); Hemoglobin 11.1 g/dL (14.0-18.0); Lymphocytes 29 % (21-51); MDiff Complete? YES; Macrocytosis MODERATE=16-30 cells (100X) (0-5/hpf); Mean Corpuscular HGB CONC 31.6 g/dL (32.0-36.0); Mean Corpuscular Hemoglobin 33.2 pg (27.0-31.0); Mean Platelet Volume 8.6 fL (7.4-10.4); Metamyelocyte 14 % (0-0); Monocytes 4 % (0-10); Myelocyte 21 % (0-0); Neutrophil 8 % (42-75); Nucleated RBC 2 % (0); Platelet Count 244 thou/uL (130-400); Platelet Morphology Comment Appears Adequate; RBC Distribution Width 13.9 % (11.5-14.5); Reactive Lymphocytes 4 % (0-10); Red Blood Cell (RBC) Count 3.33 mill/uL (4.70-6.10); White Blood Cell (WBC) Count 10.7 thou/uL (4.8-10.8)
[2021-01-21 04:12] VITALS: BP 134/99; TEMP 98.2
[2021-01-25 14:06] LABS: Actual Bicarbonate (HCO3a) 16.3 mEq/L (22-28); Analyzer IN Cardio OR; Base Excess (BEa) -10.3 mEq/L (-2.0 to +3.0); CO2 Tension 38.9 mmHg (35.0-45.0); Carboxyhemoglobin (COHb) 0.4 gm% (0.0-3.0); Hemoglobin (Hb) 11.1 g/dL (14.0-18.0); O2 Tension (PaO2), arterial 333.8 mmHg (> 70.0); Potassium - ABG Lab 3.59 mmol/L (3.70-5.30)
[2021-01-25 14:06] LABS: Actual Bicarbonate (HCO3a) 15.8 mEq/L (22-28); Analyzer IN Cardio OR; Base Excess (BEa) -11.1 mEq/L (-2.0 to +3.0); CO2 Tension 39.3 mmHg (35.0-45.0); Calcium, Ionized (arterial) 1.11 mmol/L (1.12-1.30); Carboxyhemoglobin (COHb) 1.1 gm% (0.0-3.0); Hemoglobin (Hb) 10.7 g/dL (14.0-18.0); O2 Tension (PaO2), arterial 104.2 mmHg (> 70.0); Potassium - ABG Lab 3.51 mmol/L (3.70-5.30)
[2021-01-25 14:09] LABS: Puncture Site Arterial Line; pH, Arterial 7.24 (7.35-7.45)
[2021-01-25 14:10] LABS: Puncture Site Arterial Line; pH, Arterial 7.22 (7.35-7.45)
== END 2021-01-21 04:30 | disposition expired | DRG 329 ==
LOC: ERS 22:55 → ERHOLD 01-11 00:34 → 2NO 01-11 16:46 → SURG A 01-13 13:01 → CCU 01-16 07:23 → IMCU/EMU 01-18 04:12 → SURG A 01-18 13:54 → 2NO 01-19 18:08
PROVIDERS: ADMIT Student in an Organized Health Care Education/Training Program; ATTEND Hospitalist
PROC: 0DJ08ZZ Inspection of Upper Intestinal Tract, Via Natural or Artificial Opening Endoscopic (ICD-10-PCS; 2021-01-12)
PROC: 0DBH8ZX Excision of Cecum, Via Natural or Artificial Opening Endoscopic, Diagnostic (ICD-10-PCS; 2021-01-12)
PROC: 0DBL8ZX Excision of Transverse Colon, Via Natural or Artificial Opening Endoscopic, Diagnostic (ICD-10-PCS; 2021-01-12)
PROC: 0DBP8ZX Excision of Rectum, Via Natural or Artificial Opening Endoscopic, Diagnostic (ICD-10-PCS; 2021-01-12)
PROC: 0DTF0ZZ Resection of Right Large Intestine, Open Approach (ICD-10-PCS; principal; 2021-01-13)
PROC: 0DQW0ZZ Repair Peritoneum, Open Approach (ICD-10-PCS; 2021-01-16)
PROC: 0D1B0Z4 Bypass Ileum to Cutaneous, Open Approach (ICD-10-PCS; 2021-01-16)
PROC: 5A12012 Performance of Cardiac Output, Single, Manual (ICD-10-PCS; 2021-01-21)
DX: C18.0 Malignant neoplasm of cecum (principal); K65.9 Peritonitis, unspecified; J96.01 Acute respiratory failure with hypoxia; J81.0 Acute pulmonary edema; N17.0 Acute kidney failure with tubular necrosis; K51.411 Inflammatory polyps of colon with rectal bleeding; D62 Acute posthemorrhagic anemia; E87.1 Hypo-osmolality and hyponatremia; K91.30 Postprocedural intestinal obstruction, unspecified as to partial versus complete; R57.9 Shock, unspecified; K63.89 Other specified diseases of intestine; E83.42 Hypomagnesemia; E11.22 Type 2 diabetes mellitus with diabetic chronic kidney disease; I12.9 Hypertensive chronic kidney disease with stage 1 through stage 4 chronic kidney disease, or unspecified chronic kidney disease; K44.9 Diaphragmatic hernia without obstruction or gangrene; E66.01 Morbid (severe) obesity due to excess calories; K64.8 Other hemorrhoids; K57.30 Diverticulosis of large intestine without perforation or abscess without bleeding; E78.5 Hyperlipidemia, unspecified; J45.909 Unspecified asthma, uncomplicated; N40.0 Benign prostatic hyperplasia without lower urinary tract symptoms; Z20.822 Contact with and (suspected) exposure to COVID-19; R41.0 Disorientation, unspecified; I46.9 Cardiac arrest, cause unspecified; Y83.8 Other surgical procedures as the cause of abnormal reaction of the patient, or of later complication, without mention of misadventure at the time of the procedure; Z79.51 Long term (current) use of inhaled steroids; Z98.890 Other specified postprocedural states; Z68.39 Body mass index [BMI] 39.0-39.9, adult
CPT/HCPCS: 36415; 36416; 51701; 71045; 74019; 74177; 80048; 80053; 81479; 82378; 82805; 83605; 83735; 83880; 84100; 85025; 86850; 86900; 86901; 87070; 87077; 87186; 87205; 88305; 88309; 88361; 88377; 93306; 94002; 94003; 94660; C1751; C9113; J0171; J0282; J0360; J0461; J0694; J1170; J1265; J1650; J1815; J1885; J1940; J2001; J2060; J2185; J2250; J2270; J2370; J2405; J2543; J2704; J3010; J3475; J3490; J7050; P9045; Q9967; S0020; S0028; U0003; U0005